=== PATIENT | female | born 1945 | race Caucasian/White ===

== ENCOUNTER 2021-01-16 05:58 | Day surgery (SDC) | payer MEDICARE ==
[2021-01-16] MEDS ORDERED: Lactated Ringers 1,000 ML IV SCH (06:30)
[2021-01-16] MEDS ORDERED: DIPRIVAN 200 MG/20 ML IV ONE (07:17)
[2021-01-16 07:55] VITALS: O2SAT 94
[2021-01-16 08:08] VITALS: BP 130/68; PULSE 81
--- NOTE | 2021-01-16 09:37 | OP ---
SURGERY DATE/TIME: 01/16/2021 0700 PREOPERATIVE DIAGNOSIS: Epigastric abdominal pain. POSTOPERATIVE DIAGNOSIS: Gastric polyps. PROCEDURE: EGD. SURGEON: Alfonso Taylor M.D. ANESTHESIA: MAC by Bridger Tamayo CRNA. ESTIMATED BLOOD LOSS: Minimal. SPECIMENS: Cold forceps biopsy of gastric polyp x1. DESCRIPTION OF PROCEDURE: After informed written consent was obtained, the patient was taken to the endoscopy suite. She had a bite block was inserted and anesthesia was titrated to the desired level of consciousness. The endoscope was inserted into the posterior oropharynx and under direct visualization the esophagus was easily traversed. The esophageal mucosa had a normal appearance free of any lesions or defects. Upon entering the stomach there was normal rugated gastric mucosa. There were some scattered gastric polyps but no ulcerations, no bleeding, no other abnormalities. The pylorus was traversed and the first and second portions of the duodenum were inspected and noted to be within normal limits. A large cash applications representative gastric polyp was biopsied with cold forceps and sent for pathology. Minimal blood loss. No other abnormalities on withdrawal. The scope is removed. The patient is transferred to the recovery room in good condition. I have advised that she hold aspirin and Plavix for the next week due to the polyp biopsy site. Otherwise, resume her other medications. Follow up in a week for pathology results.
== END 2021-01-16 08:29 | disposition home or self-care (01) ==
LOC: SDC 05:58
PROVIDERS: ATTEND Family Medicine
DX: K31.7 Polyp of stomach and duodenum (principal); E11.9 Type 2 diabetes mellitus without complications; Z79.899 Other long term (current) drug therapy
CPT/HCPCS: 82947; 88305; 99100; J2704